=== PATIENT | female | born 1965 | race Caucasian/White ===

== ENCOUNTER 2024-05-01 11:07 | Day surgery (SDC) | payer MEDICARE ==
[~2024-05-01 11:07] MED LIST: CeFAZolin 2 GM/DEXTROSE 50 ML IV ONE; DOXE3TAB4 PO; ERTU5TAB PO; ESTR1PAT84 TD; HYDR200T76 PO; INSU3INS3 SQ; PROG100C24 PO; RINGERS SOLUTION,LACTATED 1,000 ML IV ONE; TIRZ5PEN SQ
[2024-05-01] MEDS ORDERED: DICL75TA5 PO (11:21)
[2024-05-01] MEDS ORDERED: CeFAZolin SODIUM 1 GM VIAL IVP ONE (12:00)
[2024-05-01] MEDS ORDERED: KETOROLAC TROMETHAMINE 60 MG/2 ML VIAL IM ONE (12:00)
[2024-05-01] MEDS ORDERED: PROPOFOL 1% ISO-OSM 1000 MG/100 ML BOTTLE IV ONE (12:00)
[2024-05-01] MEDS ORDERED: LIDOCAINE/PF 2% 5 ML VIAL IM ONE (12:00)
[2024-05-01] MEDS ORDERED: KETAMINE HCL 50 MG/ML 10 ML VIAL IVP ONE (12:00)
[2024-05-01] MEDS ORDERED: MIDAZOLAM HCL 2 MG/2 ML VIAL IVP ONE (12:00)
[2024-05-01] MEDS ORDERED: ONDANSETRON HCL 4 MG/2 ML VIAL IVP ONE (12:00)
[2024-05-01] MEDS ORDERED: MUPIROCIN CALCIUM 2% 22 GM OINTMENT ONE (12:05)
[2024-05-01] MEDS ORDERED: MICROFIBRILLAR COLLAGEN 1 GM PACKAGE TP ONE (12:06)
[2024-05-01 12:14] LABS: BASOPHILS % (AUTO) 0.2 % (0.0-2.0); EOSINOPHILS % (AUTO) 2.1 % (1.0-6.0); HEMATOCRIT 42.1 % (36-46); HEMOGLOBIN 13.9 g/dL (12.0-16.0); LYMPHOCYTES # (AUTO) 2.6 K/uL (1.0-4.8); LYMPHOCYTES % (AUTO) 36.1 % (22.0-44.0); MEAN CORPUSCULAR HEMOGLOBIN 29.5 pg (26.0-34.0); MEAN CORPUSCULAR HGB CONC 33.1 G/dL (31.0-37.0); MEAN CORPUSCULAR VOLUME 89 fL (80-100); MONOCYTES # (AUTO) 0.4 K/uL (0.1-1.0); MONOCYTES % (AUTO) 5.9 % (2.0-9.0); NEUTROPHILS % (AUTO) 55.7 % (40.0-70.0); PLATELET COUNT (AUTO) 281 K/uL (150-450); RED BLOOD CELL COUNT(AUTO) 4.72 MIL/uL (4.00-5.20); RED CELL DISTRIBUTION WIDTH 13.8 % (11.5-14.5); WHITE BLOOD COUNT (AUTO) 7.1 K/uL (4.5-11.0)
[2024-05-01 12:35] LABS: GLUCOMETER DEV NAME(LOC) SDS.; GLUCOSE,POINT OF CARE 124 MG/DL (70-110)
[2024-05-01] MEDS ORDERED: ACETAMINOPHEN 1000 MG/ISO-OSM 100 ML IV ONE (12:38)
[2024-05-01] MEDS: ETHYL ALCOHOL 62% ANTISEPTIC NASAL SANITIZER 0.6 ML AMPUL NASAL ONE (12:42)
[2024-05-01] MEDS: CHLORHEXIDINE GLUCONATE 2% TOWELETTE [2'S/6'S] TP ONE (12:42)
[2024-05-01] MEDS: RINGERS SOLUTION,LACTATED 1,000 ML IV ONE (12:42)
[2024-05-01] MEDS: ACETAMINOPHEN 1000 MG/ISO-OSM 100 ML IV ONE (12:43)
[2024-05-01] MEDS ORDERED: CeFAZolin 2 GM/DEXTROSE 50 ML IV ONE (13:00)
[2024-05-01] MEDS: BUPIVACAINE HCL/PF 0.25% 30 ML VIAL ONE (13:56)
[2024-05-01] MEDS: VANCOMYCIN HCL 1 GM VIAL ONE (13:58)
[2024-05-01] MEDS: ONDANSETRON HCL 4 MG/2 ML VIAL IVP ONE (14:25)
[2024-05-01] MEDS: FentaNYL CITRATE PF 100 MCG/2 ML VIAL IVP ONE (14:49)
== END 2024-05-01 16:00 | disposition home or self-care (01) ==
LOC: SURGERY 11:07
PROVIDERS: ATTEND Orthopaedic Surgery
DX: G56.01 Carpal tunnel syndrome, right upper limb (principal); E11.9 Type 2 diabetes mellitus without complications; E03.9 Hypothyroidism, unspecified; Z79.899 Other long term (current) drug therapy; Z98.890 Other specified postprocedural states; K76.0 Fatty (change of) liver, not elsewhere classified
CPT/HCPCS: 93005; 64721; 82962; 85025; 36415; 25020; J3490 ×3; J0690 ×2; J3010; J1885; J2250; J2405; J2704; J3370; J7120; J0131